=== PATIENT | male | born 1955 | race Caucasian/White ===

== ENCOUNTER 2018-02-11 01:00 | Emergency (ER) | payer SELFPAY ==
[~2018-02-11] VITALS: Ht 175.3 cm; Wt 122.5 kg
[2018-02-11] MEDS ORDERED: SODIUM CHLORIDE 0.9% 1000ML 1,000 ML IV STA ×2 (01:16→01:39)
[2018-02-11] MEDS ORDERED: MORPHINE SULFATE 4 MG/ML SYR IV STA (01:16)
[2018-02-11] MEDS ORDERED: METOCLOPRAMIDE HCL 10 MG/2ML VIAL IV ONE (01:30)
== END 2018-02-11 03:10 | disposition home or self-care (01) ==
LOC: FSED 01:00
DX: N13.2 Hydronephrosis with renal and ureteral calculous obstruction (principal); K80.20 Calculus of gallbladder without cholecystitis without obstruction; I10 Essential (primary) hypertension; K46.9 Unspecified abdominal hernia without obstruction or gangrene; K57.32 Diverticulitis of large intestine without perforation or abscess without bleeding; R00.1 Bradycardia, unspecified
CPT/HCPCS: 74176; 80053; 81003; 82553; 84484; 85025; 93005; 99284; J2270; J2765; J7030

== ENCOUNTER 2018-07-23 13:11 | Emergency (ER) | payer BC ==
[~2018-07-23] VITALS: Ht 175.3 cm; Wt 122.5 kg
[2018-07-23] MEDS ORDERED: KETOROLAC TROMETHAMINE 30 MG/ML VIAL IV STA (13:37)
--- NOTE | 2018-07-23 15:30 | Diagnostic Imaging Report ---
EXAMINATION: CT of the abdomen and pelvis without contrast. TECHNIQUE: Spiral CT images of the abdomen and pelvis were performed from the lung bases to the lesser trochanters. No intravenous contrast was given per renal stone protocol. Coronal and sagittal reformatted images were obtained. COMPARISON: None. CLINICAL HISTORY:Left-sided flank pain, history of renal stones DISCUSSION: ABSENCE OF INTRAVENOUS CONTRAST DECREASES SENSITIVITY FOR DETECTION OF FOCAL LESIONS AND VASCULAR PATHOLOGY. ABDOMEN/PELVIS: LOWER THORAX: Lung is clear. Small hiatal hernia. HEPATOBILIARY: Liver size in the upper limit of normal, measuring 15.6 cm in the right midclavicular line. Diffuse hepatic steatosis. No focal hepatic lesions. No intra or extrahepatic biliary ductal dilation. GALLBLADDER: Multiple radiopaque stones are noted in the gallbladder fundus. No wall thickening or pericholecystic fluid. SPLEEN: Mild splenomegaly, measuring 13.0 cm in anteroposterior diameter. 2.2 cm splenule. PANCREAS: No focal masses or ductal dilatation. ADRENALS: No adrenal nodules. KIDNEYS/URETERS: 9-10 mm obstructing calculus in the distal left ureter proximal to the left UVJ (series 2, image 77), which results in very very mild left hydronephrosis, mild hydroureter and mild to moderate left periureteral stranding. No other renal or ureteral calculi. No right hydronephrosis or obstruction. 2.6 x 2.3 cm fluid density cystic lesion in the lateral right interpolar region (series 2, image 40), which likely represents a simple cyst. PELVIC ORGANS/BLADDER: Bladder is decompressed but grossly unremarkable. No bladder calculi. Dystrophic calcifications in the prostate. PERITONEUM/RETROPERITONEUM: No free air or fluid. LYMPH NODES: No intra-abdominal,retroperitoneal, pelvic or inguinal lymphadenopathy. VESSELS: Unremarkable for noncontrast exam. GI TRACT: The visualized bowel shows no dilation or obstruction. BONES AND SOFT TISSUES: Normal uterus and effusions. Mild degenerative changes in the L5-S1. Well-circumscribed lucent lesion in the left acetabulum (series 2, image 72), with well-circumscribed thin sclerotic border, consistent with cystic degenerative changes. Mild degenerative changes in the sacroiliac joints. Bilateral fat-containing inguinal hernias. IMPRESSION: 1. 9-10 mm partially obstructing calculus in the distal left ureter proximal to the left UVJ, which results in very mild left hydronephrosis, left hydroureter and mild to moderate left periureteral stranding. 2. No other renal, ureteral or bladder calculi. 3. Diffuse hepatic steatosis. Signed by: Dr. Mata Faulkner M.D. on 07/23/2018 3:27 PM
[2018-07-23 15:53] VITALS: BP 180/99
[2018-07-29] MEDS ORDERED: LISINOPRIL2.5 MG PO (11:46)
== END 2018-07-23 16:09 | disposition home or self-care (01) ==
LOC: FSED 13:11
DX: M54.5 Low back pain (principal); N20.1 Calculus of ureter; I10 Essential (primary) hypertension; E11.65 Type 2 diabetes mellitus with hyperglycemia
CPT/HCPCS: 74176; 80048; 80076; 81003; 85025; 99284; J1885

== ENCOUNTER → 2018-07-31 | Day surgery (SDC) | payer BC ==
[~2018-07-31] MED LIST: ACETAMINOPHEN/CODEINE 300MG - 30MG TAB ONE; CEFTRIAXONE SOD 1 GM VIAL ONE; DEXAMETHASONE SOD PHOS INJ 4 MG/ML VIAL ONE; FENTANYL CITRATE/PF 100MCG/2 ML INJ ONE; IOPAMIDOL 610MG/1ML 300 MG/ML VIAL IV ONE; LIDOCAINE HCL 2% LOCAL INJ 5 ML SDV VIAL INJ ONE; LISINOPRIL2.5 MG PO; MIDAZOLAM HCL 2 MG/2 ML VIAL ONE; ONDANSETRON HCL INJ 2 MG/ML VIAL ONE; PROPOFOL IV EMULSION 10 MG/ML 20 ML VIAL ONE; SEVOFLURANE INHAL SOLN 250 ML PEN BTL ONE
--- OUTSIDE RECORDS SUMMARY | 2018-07-31 12:39 | XMS REPORT ---
Author Author [facility] Address Unknown Phone Unavailable Care Team Providers Care Education Courses Sales Representative Name Role Phone ROSEY MORROW Unavailable Unavailable Problems This patient has no known problems. Allergies, Adverse Reactions, Alerts This patient has no known allergies or adverse reactions. Medications This patient has no known medications. Results Test Description Test Time Test Comments Text Results Atomic Results Result Comments CT ABD/PEL WO CONTRAST-HOPD 2018-07-23 15:18:[address] [address] Patient Name: PK UPTON MR #: [id number] : 1955 Age/Sex: 63/M Req #: [id number] Adm Physician: Ordered by: ROSEY MORROW MD Report #: [id number] Location: [facility] Room/Bed: Procedure: [id number] HOPD/CT ABD/PEL WO CONTRAST-HOPD Exam Date: 07/23/18 Exam Time: 1400 REPORT STATUS: Signed EXAMINATION: CT of the abdomen and pelvis without contrast. TECHNIQUE: Spiral CT images of the abdomen and pelvis were performed from the lung bases to the lesser trochanters. No intravenous contrast was given per renal stone protocol. Coronal and sagittal reformatted images were obtained. COMPARISON: None. CLINICAL HISTORY:Left-sided flank pain, history of renal stones DISCUSSION: ABSENCE OF INTRAVENOUS CONTRAST DECREASES SENSITIVITY FOR DETECTION OF FOCAL LESIONS AND VASCULAR PATHOLOGY. ABDOMEN/PELVIS: LOWER THORAX: Lung is clear. Small hiatal hernia. HEPATOBILIARY: Liver size in the upper limit of normal, measuring 15.6 cm in the right midclavicular line. Diffuse hepatic steatosis. No focal hepatic lesions. No intra or extrahepatic biliary ductal dilation. GALLBLADDER: Multiple radiopaque stones are noted in the gallbladder fundus. No wall thickening or pericholecystic fluid. SPLEEN: Mild splenomegaly, measuring 13.0 cm in anteroposterior diameter. 2.2 cm splenule. PANCREAS: No focal masses or ductal dilatation. ADRENALS: No adrenal nodules. KIDNEYS/URETERS: 9-10 mm obstructing calculus in the distal left ureter proximal to the left UVJ (series 2, image 77), which results in very very mild left hydronephrosis, mild hydroureter and mild to moderate left periureteral stranding. No other renal or ureteral calculi. No right hydronephrosis or obstruction. 2.6 x 2.3 cm fluid density cystic lesion in the lateral right interpolar region (series 2, image 40), which likely represents a simple cyst. PELVIC ORGANS/BLADDER: Bladder is decompressed but grossly unremarkable. No bladder calculi. Dystrophic calcifications in the prostate. PERITONEUM/RETROPERITONEUM: No free air or fluid. LYMPH NODES: No intra-abdominal,retroperitoneal, pelvic or inguinal lymphadenopathy. VESSELS: Unremarkable for noncontrast exam. GI TRACT: The visualized bowel shows no dilation or obstruction. BONES AND SOFT TISSUES: Normal uterus and effusions. Mild degenerative changes in the L5-S1. Well-circumscribed lucent lesion in the left acetabulum (series 2, image 72), with well-circumscribed thin sclerotic border, consistent with cystic degenerative changes. Mild degenerative changes in the sacroiliac joints. Bilateral fat-containing inguinal hernias. IMPRESSION: 1. 9-10 mm partially obstructing calculus in the distal left ureter proximal to the left UVJ, which results in very mild left hydronephrosis, left hydroureter and mild to moderate left periureteral stranding. 2. No other renal, ureteral or bladder calculi. 3. Diffuse hepatic steatosis. Signed by: Dr. Selvin Faulkner M.D. on 07/23/2018 3:27 PM Dictated By: SELVIN FUALKNER MD [id number] Transcribed By: GINNY on 07/23/18 1527 COPY TO: ROSEY MORROW MD
[2018-07-31 15:35] VITALS: BP 122/74
--- NOTE | 2018-07-31 15:42 | Operative Report ---
DATE OF PROCEDURE: July 31, 2018 PREOPERATIVE DIAGNOSES 1. Microscopic hematuria. 2. Left ureteral calculus. 3. Left hydronephrosis. POSTOPERATIVE DIAGNOSES 1. Microscopic hematuria. 2. Left ureteral calculus. 3. Left hydronephrosis. PROCEDURES PERFORMED 1. Cystourethroscopy with right ureter catheterization and right retrograde pyelogram (separate procedure for the microscopic hematuria). 2. Left-sided ureteroscopy with laser lithotripsy (entirely separate procedure for left ureteral calculus). 3. Left-sided ureteroscopy with stone extraction (entirely separate procedure for the specific purpose of sending stone for analysis, not required for laser lithotripsy). 4. Cystourethroscopy with insertion of a left indwelling ureteral stent (entirely separate procedure for the diagnosis of left hydronephrosis). 5. Supervision of fluoroscopy. 6. Interpretation of retrograde pyelography. ANESTHESIA: General. ESTIMATED BLOOD LOSS: Minimal. COMPLICATIONS: None. INDICATIONS FOR PROCEDURE: Mr. Bansal is a 63-year-old male who has failed a trial of passage of a 12 x 9 mm distal ureteral calculus. He and I had a long discussion in regard to the alternatives, risks and benefits including doing nothing, shockwave lithotripsy, ureteroscopy, percutaneous surgery, open surgery. He voiced understanding of the options, the alternatives, the risks and the benefits, and he elected to proceed. PROCEDURE IN DETAIL: After informed consent was obtained, the patient was taken to the operative suite and he was placed supine on the operating table. He underwent general anesthesia by the anesthesia service, placed in the dorsal lithotomy position and sterilely prepped and draped in the standard fashion for cystoscopy. A 21-Swazi cystoscope was inserted per urethra, and a normal urethra was noted. Panendoscopy of the bladder revealed no tumors, no stones. Both ureteral orifices were in their normal anatomical location and position and were seen to efflux clear urine. Bilateral retrograde pyelograms were performed. The right was normal. The left revealed a very large 12 x 9 mm distal ureteral calculus with proximal hydronephrosis. A guide wire was inserted. The ureter was dilated. The ureteroscope was advanced to the level of the ureteral calculus. Utilizing a 365-micron laser fiber, the stone was obliterated into multiple small fragments. The smaller fragments were basket extracted and passed off the table as a specimen. A stent was then deployed, 7 x 26 cm, with a coil in the renal pelvis and a coil in the bladder. The bladder was drained. The patient was awakened from anesthesia and transported to the recovery room in excellent condition with no untoward effects noted. Job#: [id number] EV
== END | disposition home or self-care (01) ==
LOC: OR 12:36
PROVIDERS: ATTEND Urology
DX: N20.1 Calculus of ureter (principal); N13.1 Hydronephrosis with ureteral stricture, not elsewhere classified; R31.29 Other microscopic hematuria; N28.1 Cyst of kidney, acquired; I10 Essential (primary) hypertension; E66.01 Morbid (severe) obesity due to excess calories; Z01.810 Encounter for preprocedural cardiovascular examination
CPT/HCPCS: 52356; 74420; 88300; 93005; C2617; J0696; J1100; J2001; J2250; J2405; J2704; Q9967

== ENCOUNTER → 2018-08-28 | Day surgery (SDC) | payer BC ==
[~2018-08-28] MED LIST changes: -ACETAMINOPHEN/CODEINE 300MG - 30MG TAB ONE
--- NOTE | 2018-08-28 15:10 | Operative Report ---
DATE OF PROCEDURE: August 28, 2018 PREOPERATIVE DIAGNOSES 1. Indwelling left ureteral stent. 2. Left ureteral stricture. POSTOPERATIVE DIAGNOSES 1. Indwelling left ureteral stent. 2. Left ureteral stricture. PROCEDURES 1. Cystourethroscopy with removal of left indwelling stent (entirely separate procedure FOR DIAGNOSIS left ureteral stent). 2. Left-sided ureteroscopy (entirely separate procedure for left ureteral stricture). 3. Supervision of fluoroscopy. 4. Interpretation of retrograde pyelography. ANESTHESIA: General. ESTIMATED BLOOD LOSS: Minimal. COMPLICATIONS: None. INDICATIONS FOR PROCEDURE: Mr. Bansal is a very pleasant 63-year-old male with a history of indwelling left ureteral stent and left ureteral calculus with stricture formation. He and I had a long discussion regarding the alternatives, risks and benefits, including doing nothing, cystoscopy, stent removal, ureteroscopy, percutaneous surgery, open surgery. He voiced an understanding of the options, the alternatives, and the risks and benefits and elected to proceed. PROCEDURE IN DETAIL: After informed consent was obtained, the patient was taken to the operative suite, placed supine on the operating table. He underwent general anesthesia by the anesthesia service. He was placed in the dorsal lithotomy position. He was sterilely prepped and draped in the standard fashion for cystoscopy. A 22.5-Croatian cystoscope was inserted per urethra. A normal urethra was noted. Panendoscopy of the bladder revealed no tumors, no stones. The stent was seen extruding from the ureteral orifice and was grasped and removed. Guidewire was inserted. Ureteroscope was advanced to the level of previous ureteral stricture. This has been dilated. It was open and passable with ureteroscope. Retrograde pyelogram was performed though the ureteroscope; revealed no other filling defects, no hydronephrosis, no other stones. At this time with no obstruction, the bladder was drained. The patient was awakened from anesthesia and transported to the recovery room in excellent condition. SUPERVISION OF FLUOROSCOPY AND INTERPRETATION OF RETROGRADE PYELOGRAPHY: I was present throughout the entire procedure and supervised the use of fluoroscopy. There was no radiologist present at any time during the procedure. Attention was turned toward the left ureteral orifice, which was catheterized WITH ureteroscope and retrograde pyelogram was performed, revealing a dilated ureter, delicate pelvicaliceal system. No evidence of filling defects. No evidence of hydronephrosis. IMPRESSION 1. Chronically dilated left system. 2. Interim resolution of stent, stone, and stricture. Job#: [id number] BRIDGETTE
[2018-08-28 15:15] VITALS: BP 107/68
== END | disposition home or self-care (01) ==
LOC: OR 11:05
PROVIDERS: ATTEND Urology
DX: Z46.6 Encounter for fitting and adjustment of urinary device (principal); N13.5 Crossing vessel and stricture of ureter without hydronephrosis; N13.39 Other hydronephrosis; N28.1 Cyst of kidney, acquired; I10 Essential (primary) hypertension; R00.1 Bradycardia, unspecified; Z01.810 Encounter for preprocedural cardiovascular examination; Z68.41 Body mass index [BMI] 40.0-44.9, adult
CPT/HCPCS: 52351; 74420; 93005; J0696; J1100; J2001; J2250; J2405; J2704; Q9967